=== PATIENT | female | born 1980 | race Caucasian/White ===

== ENCOUNTER 2017-01-15 10:46 | Emergency (ER) | payer SELFPAY ==
[2017-01-15 11:53] LABS: RED BLOOD COUNT 4.35 M/UL (4.00-5.10); WHITE BLOOD COUNT 13.5 K/UL (4.5-11.0)
[2017-01-15 12:17] LABS: BUN/CREATININE RATIO 13 (0-10)
== END 2017-01-15 19:45 | disposition short-term general hospital (02) ==
LOC: ER1 10:46
PROVIDERS: Emergency Medicine
DX: T43.212A Poisoning by selective serotonin and norepinephrine reuptake inhibitors, intentional self-harm, initial encounter (principal); I45.81 Long QT syndrome; F32.9 Major depressive disorder, single episode, unspecified; F41.9 Anxiety disorder, unspecified; F17.200 Nicotine dependence, unspecified, uncomplicated; Z79.899 Other long term (current) drug therapy
CPT/HCPCS: 36415; 80053; 80307; 81001; 83735; 84703; 85025; 93005; 99285